=== PATIENT | male | born 2000 ===

== ENCOUNTER 2021-04-18 11:49 | Observation (INO) ==
[2021-04-18] MEDS ORDERED: Ondansetron 4 mg VIAL 2 MG/ML 2 ml VIAL IV PRN (15:46)
[2021-04-18] MEDS ORDERED: Albuterol HFA INHALER 8 gm MDI INH PRN (16:13)
[2021-04-18 17:06] LABS: Rapid COVID-19 Molecular Undetected (Undetected)
[2021-04-19 15:53] VITALS: BP 108/69
[2021-04-19] MEDS ORDERED: Mometasone 220 MCG MDI INH SCH (18:30)
== END 2021-04-19 18:25 | disposition home or self-care (01) ==
LOC: EDSEX → SSU 11:49 → ED 11:49 → SUATTDRO 15:46 → MERGE 15:46 → SSU 18:43
PROVIDERS: ADMIT Student in an Organized Health Care Education/Training Program; ATTEND Internal Medicine